=== PATIENT | male | born 1965 | race Caucasian/White ===

== ENCOUNTER 2020-08-15 08:12 | Day surgery (SDC) | payer SELFPAY ==
[~2020-08-15 08:12] MED LIST: BUPIVACAINE 0.25% W/EPI 50 ML VIAL INJ ONE; KETOROLAC TROMETHAMINE INJ 30 MG/ML VIAL ONE; LACTATED RINGERS 1,000 ML ONE; MAGNESIUM SULFATE INJ 1 GM/2 ML VIAL ONE; PROPOFOL 200 MG/20 ML VIAL IV ONE; ceFAZolin SODIUM 1 GM VIAL ONE
[2020-08-15] MEDS ORDERED: LACTATED RINGERS 1,000 ML IVS ONE (11:10)
[2020-08-15] MEDS ORDERED: DEXMEDETOMIDINE HCL 200 MCG/2 ML INJ IV ONE (11:56)
[2020-08-15] MEDS ORDERED: MIDAZOLAM INJ 2 MG/2 ML VIAL ONE (11:56)
[2020-08-15] MEDS ORDERED: FAMOTIDINE INJ 10 MG/ML VIAL IV ONE (11:57)
[2020-08-15] MEDS ORDERED: fentaNYL CITRATE INJ 50 MCG/ML 2 ML AMP ONE (11:57)
[2020-08-15] MEDS ORDERED: BUPIVACAINE 0.25% W/EPI 50 ML VIAL INJ ONE ×2 (12:20)
--- NOTE | 2020-08-15 13:48 | OP ---
DATE OF PROCEDURE: 08/15/20 PREOPERATIVE DIAGNOSIS: 1. Left inguinal hernia. 2. Ventral hernia. POSTOPERATIVE DIAGNOSIS: 1. Left inguinal hernia. 2. Incarcerated ventral hernia. PROCEDURE: 1. Repair of left inguinal hernia with PHS mesh. 2. Ilioinguinal nerve block for postoperative pain control. 3. 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 4. Repair of incarcerated ventral hernia, separate site. SURGEON: Dieter Babb MD. ANESTHESIA: General, Reji Bernabe CRNA. FINDINGS: As described. ESTIMATED BLOOD LOSS: None. CONDITION: Stable. SPECIMEN: Retroperitoneal fatty tumor. PLAN: Discharge. INDICATION: This is a man who presented previously for surgery. His sugars were high and out of control. They are much better controlled now, so we are better able to safely proceed with surgery with minimized risk of complication. PROCEDURE: The patient was brought to the Operative Suite in supine position. General anesthesia was induced. He was prepped and draped in sterile fashion. Marcaine 0.5% with epinephrine was at the incision site. We made our incision based on anatomic landmarks in the left groin. His ventral hernia had also been marked preoperatively with the patient in a standing position. Incision was made. Subcutaneous tissues were taken down. The subcutaneous vessel was identified, cauterized and ligated. The external oblique aponeurosis was identified. A estrellita was made along its fibers while undermining with Metzenbaum scissors. It was opened up along its fibers. We identified a large ilioinguinal nerve, dissected out from the musculature and safely kept it inferiorly. We then isolated the cord, which was rather large. We identified the moderate hernia sac. This was dissected off the cord structures and reduced. There was still a large fatty cord, as we examined it, there appeared to be a retroperitoneal tumor coming through the internal ring, so this separate fatty tissue from the cord structure was high ligated with 2-0 Vicryl. The hernia then reduced. We used an [place] as we entered the preperitoneal plane. This held the epigastric vessels anteriorly while we used 3 moist Ray- Waylon sponges and finger sweep to create the preperitoneal plane to accommodate the mesh. The large PHS mesh was used. It was trimmed inferiorly and placed in the preperitoneal plane. We confirmed its flat placement with retraction and finger sweep. It was then cut and wrapped around the cord, non-stricturing and secured to the shelving edge and also secured to the tubercle. More local was placed at this time. It was then laid out laterally underneath the external oblique. It was lying nice and flat on the floor. The nerve was now inferior, out of harm's way. The external oblique was then closed with a running 2-0 Vicryl, again with care not to incorporate the nerve. More local anesthesia was placed. The wound was then closed with 2 layers and dressing applied. There was excellent hemostasis. We then went to the ventral hernia. A vertical incision was made over the previous marking. We dissected down. There was a moderate amount of incarcerated tissue, probably 3 to 4 cm worth of tissue. Some of this was removed down to the fascial base. The small amount of remaining tissue was reduced. The defect itself was just under 2 cm. This was closed primarily with interrupted 0 PDS suture, 3 of them to be exact, with care not to grab any tissue underneath. Local anesthesia was placed. This was also closed in 2 layers and dressing applied. He tolerated the procedure. The patient was awakened and taken to Recovery to be discharged. #[id number] cc: Mendle Devlin MD [facility]
[2020-08-15 13:51] VITALS: BP 139/79; O2SAT 97
[2020-08-15] MEDS ORDERED: HYDROcodone 5MG/APAP 325MG 1 EA TAB ONE (13:58)
[2020-08-15 14:30] VITALS: TEMP 98.4
== END 2020-08-15 14:30 | disposition home or self-care (01) ==
LOC: AMB 08:12
PROVIDERS: ATTEND Surgery
DX: K43.6 Other and unspecified ventral hernia with obstruction, without gangrene (principal); K40.90 Unilateral inguinal hernia, without obstruction or gangrene, not specified as recurrent; D17.6 Benign lipomatous neoplasm of spermatic cord; E11.9 Type 2 diabetes mellitus without complications; Z79.84 Long term (current) use of oral hypoglycemic drugs
CPT/HCPCS: 00830; 36415; 36416; 49505; 49561; 64425; 80048; 82948; 83036; 85025; J0690; J1885; J2250; J3010; J3475; J3490; J7120